=== PATIENT | male | born 1940 | race Caucasian/White ===

== ENCOUNTER → 2016-10-24 | Outpatient (CLI) | payer MEDICARE ==
[~2016-10-24] MED LIST: ACYC400T4 PO; DEXA4TAB PO; HYDR-3240 PO; LENA25CA; METR1KIT; OMNIPAQUE 350 MG/ML, 100ML BOTTLE ONE; OXYC10TA32 PO; PROC5TAB PO; SULF1TAB3 PO; TAMS-11 PO
== END | disposition home or self-care (01) ==
LOC: CFH 10:18
PROVIDERS: ATTEND Internal Medicine Hematology & Oncology
DX: C90.00 Multiple myeloma not having achieved remission (principal)
CPT/HCPCS: 70491; 82565; Q9967

== ENCOUNTER 2017-07-10 09:02 | Emergency (ER) | payer MEDICARE ==
[~2017-07-10] VITALS: Ht 175.3 cm; Wt 73.0 kg
[~2017-07-10 09:02] MED LIST changes: -OMNIPAQUE 350 MG/ML, 100ML BOTTLE ONE; -OXYC10TA32 PO; +OXYC10TA47 PO; +SULF-169 PO; -SULF1TAB3 PO
[2017-07-10] MEDS ORDERED: ENOX80SY4 SQ (09:15)
[2017-07-10] MEDS ORDERED: TERI2.4P INJ (09:27)
[2017-07-10] MEDS ORDERED: DOCU-131 PO (09:34)
[2017-07-10] MEDS ORDERED: FAMO20TA37 PO (09:34)
[2017-07-10] MEDS ORDERED: CALC-126 PO (09:34)
[2017-07-10] MEDS ORDERED: LENA15CA PO (09:34)
[2017-07-10] MEDS ORDERED: FINA5TAB4 PO (09:34)
[2017-07-10 10:24] VITALS: BP 96/66
== END 2017-07-10 10:27 | disposition home or self-care (01) ==
LOC: ED 10:10
DX: M79.672 Pain in left foot (principal); C90.00 Multiple myeloma not having achieved remission
CPT/HCPCS: 93005; 99283

== ENCOUNTER → 2017-08-29 | Outpatient (CLI) | payer MEDICARE ==
[~2017-08-29] MED LIST changes: +CALC-126 PO; +DOCU-131 PO; +ENOX80SY4 SQ; +FAMO20TA37 PO; +FINA5TAB4 PO; +LENA15CA PO; +TERI2.4P INJ
[2017-08-29 12:47] LABS: BASOPHILS # (AUTO) 0.05 x10^3/uL (0-0.1); BASOPHILS % (AUTO) 1 % (0-1); EOSINOPHILS # (AUTO) 0.08 x10^3/uL (0-0.4); EOSINOPHILS % (AUTO) 2 % (1-7); LYMPHOCYTES # (AUTO) 0.77 x10^3/uL (1-3.4); LYMPHOCYTES % (AUTO) 19 % (22-44); MD NO; MEAN CORPUSCULAR HEMOGLOBIN 32.2 pg (27.5-34.5); MEAN CORPUSCULAR HGB CONC 34.1 g/dL (33.2-36.2); MEAN CORPUSCULAR VOLUME 94.5 fL (81-97); MEAN PLATELET VOLUME 7.6 fL (7.4-10.4); MONOCYTES # (AUTO) 0.66 x10^3/uL (0.2-0.8); MONOCYTES % (AUTO) 17 % (2-9); NEUTROPHILS # (AUTO) 2.42 x10^3/uL (1.8-6.8); NEUTROPHILS % (AUTO) 61 % (42-75); PLATELET COUNT 165 x10^3/uL (130-400); RED BLOOD COUNT 4.47 x10^6/uL (4.38-5.82); RED CELL DISTRIBUTION WIDTH 14.1 % (9.4-14.8)
[2017-08-29 13:25] LABS: FOLATE LEVEL 18.7 ng/mL (3.1-17.5)
== END | disposition home or self-care (01) ==
LOC: LAB 12:36
PROVIDERS: ATTEND Internal Medicine Hematology & Oncology
DX: C90.00 Multiple myeloma not having achieved remission (principal); C79.51 Secondary malignant neoplasm of bone; M81.0 Age-related osteoporosis without current pathological fracture; Z92.21 Personal history of antineoplastic chemotherapy
CPT/HCPCS: 36415; 82607; 82746; 85025

== ENCOUNTER → 2017-09-25 | Outpatient (CLI) | payer MEDICARE | END | disposition home or self-care (01) | LOC: LAB 11:45 | PROVIDERS: ATTEND Urology | DX: N40.1 Benign prostatic hyperplasia with lower urinary tract symptoms (principal) | CPT/HCPCS: 36415; 84153 ==

== ENCOUNTER → 2017-10-15 | Outpatient (CLI) | payer MEDICARE ==
[2017-10-15 12:00] LABS: BASOPHILS # (AUTO) 0.05 x10^3/uL (0-0.1); BASOPHILS % (AUTO) 1 % (0-1); EOSINOPHILS # (AUTO) 0.11 x10^3/uL (0-0.4); EOSINOPHILS % (AUTO) 3 % (1-7); LYMPHOCYTES # (AUTO) 0.74 x10^3/uL (1-3.4); LYMPHOCYTES % (AUTO) 19 % (22-44); MD NO; MEAN CORPUSCULAR VOLUME 94.3 fL (81-97); MEAN PLATELET VOLUME 7.9 fL (7.4-10.4); MONOCYTES # (AUTO) 0.58 x10^3/uL (0.2-0.8); MONOCYTES % (AUTO) 15 % (2-9); NEUTROPHILS # (AUTO) 2.32 x10^3/uL (1.8-6.8); NEUTROPHILS % (AUTO) 61 % (42-75); PLATELET COUNT 183 x10^3/uL (130-400); RED BLOOD COUNT 4.39 x10^6/uL (4.38-5.82); RED CELL DISTRIBUTION WIDTH 14.3 % (9.4-14.8)
== END | disposition home or self-care (01) ==
LOC: LAB 11:32
PROVIDERS: ATTEND Internal Medicine Hematology & Oncology
DX: C79.51 Secondary malignant neoplasm of bone (principal); C90.00 Multiple myeloma not having achieved remission; M81.0 Age-related osteoporosis without current pathological fracture
CPT/HCPCS: 36415; 85025

== ENCOUNTER → 2018-01-27 | Outpatient (CLI) | payer MEDICARE | END | disposition home or self-care (01) | LOC: CFH 01-24 11:25 | PROVIDERS: ATTEND Internal Medicine Endocrinology, Diabetes & Metabolism | DX: M85.88 Other specified disorders of bone density and structure, other site (principal) | CPT/HCPCS: 77080 ==

== ENCOUNTER → 2018-03-03 | Outpatient (CLI) | payer MEDICARE ==
[~2018-03-03] MED LIST changes: -PROC5TAB PO; +PROC5TAB2 PO
[2018-03-03 14:25] LABS: BASOPHILS # (AUTO) 0.07 x10^3/uL (0-0.1); BASOPHILS % (AUTO) 2 % (0-1); EOSINOPHILS # (AUTO) 0.11 x10^3/uL (0-0.4); EOSINOPHILS % (AUTO) 3 % (1-7); LYMPHOCYTES # (AUTO) 0.87 x10^3/uL (1-3.4); LYMPHOCYTES % (AUTO) 20 % (22-44); MD NO; MEAN CORPUSCULAR HGB CONC 33.6 g/dL (33.2-36.2); MEAN CORPUSCULAR VOLUME 95.3 fL (81-97); MONOCYTES # (AUTO) 0.53 x10^3/uL (0.2-0.8); MONOCYTES % (AUTO) 12 % (2-9); NEUTROPHILS # (AUTO) 2.71 x10^3/uL (1.8-6.8); NEUTROPHILS % (AUTO) 63 % (42-75); PLATELET COUNT 174 x10^3/uL (130-400); RED BLOOD COUNT 4.63 x10^6/uL (4.38-5.82); RED CELL DISTRIBUTION WIDTH 14.3 % (9.4-14.8)
[2018-03-03 14:33] LABS: ALANINE AMINOTRANSFERASE 35 U/L (12-78); ALBUMIN 3.5 g/dL (3.4-5.0); ANION GAP 7 mmol/L (5-15); CALCIUM 8.8 mg/dL (8.5-10.1); CHLORIDE 106 mmol/L (98-107); CREATININE 0.97 mg/dL (0.7-1.3)
[2018-03-03 14:35] LABS: ALKALINE PHOSPHATASE 57 U/L (45-117); BILIRUBIN,TOTAL 0.7 mg/dL (0.2-1.0); TOTAL PROTEIN 6.6 g/dL (6.4-8.2)
== END | disposition home or self-care (01) ==
LOC: LAB 14:03
PROVIDERS: ATTEND Internal Medicine Hematology & Oncology
DX: C90.00 Multiple myeloma not having achieved remission (principal); C79.51 Secondary malignant neoplasm of bone; M81.0 Age-related osteoporosis without current pathological fracture; R53.0 Neoplastic (malignant) related fatigue
CPT/HCPCS: 36415; 80053; 82784; 83883; 84155; 84165; 85025; 86334

== ENCOUNTER → 2018-04-14 | Outpatient (CLI) | payer MEDICARE ==
[2018-04-14 17:19] LABS: BASOPHILS # (AUTO) 0.08 x10^3/uL (0-0.1); BASOPHILS % (AUTO) 2 % (0-1); EOSINOPHILS # (AUTO) 0.11 x10^3/uL (0-0.4); EOSINOPHILS % (AUTO) 2 % (1-7); LYMPHOCYTES # (AUTO) 0.75 x10^3/uL (1-3.4); LYMPHOCYTES % (AUTO) 15 % (22-44); MD NO; MEAN CORPUSCULAR HEMOGLOBIN 32.7 pg (27.5-34.5); MEAN CORPUSCULAR HGB CONC 33.8 g/dL (33.2-36.2); MEAN CORPUSCULAR VOLUME 96.7 fL (81-97); MEAN PLATELET VOLUME 8.6 fL (7.4-10.4); MONOCYTES # (AUTO) 0.58 x10^3/uL (0.2-0.8); MONOCYTES % (AUTO) 12 % (2-9); NEUTROPHILS # (AUTO) 3.41 x10^3/uL (1.8-6.8); NEUTROPHILS % (AUTO) 69 % (42-75); PLATELET COUNT 161 x10^3/uL (130-400); RED BLOOD COUNT 4.28 x10^6/uL (4.38-5.82); RED CELL DISTRIBUTION WIDTH 14.3 % (9.4-14.8)
[2018-04-14 17:28] LABS: ALANINE AMINOTRANSFERASE 35 U/L (12-78); ALBUMIN 3.4 g/dL (3.4-5.0); ANION GAP 8 mmol/L (5-15); CALCIUM 8.2 mg/dL (8.5-10.1); CHLORIDE 108 mmol/L (98-107); CREATININE 0.93 mg/dL (0.7-1.3)
[2018-04-14 17:31] LABS: ALKALINE PHOSPHATASE 58 U/L (45-117); BILIRUBIN,TOTAL 0.4 mg/dL (0.2-1.0); TOTAL PROTEIN 6.2 g/dL (6.4-8.2)
== END | disposition home or self-care (01) ==
LOC: LAB 16:25
PROVIDERS: ATTEND Internal Medicine Hematology & Oncology
DX: C90.00 Multiple myeloma not having achieved remission (principal); C79.51 Secondary malignant neoplasm of bone; M81.0 Age-related osteoporosis without current pathological fracture; R53.0 Neoplastic (malignant) related fatigue
CPT/HCPCS: 36415; 80053; 82784; 83883; 84155; 84165; 85025; 86334

== ENCOUNTER 2018-06-23 13:36 | Outpatient (CLI) | payer MEDICARE ==
[2018-06-23 14:00] LABS: BASOPHILS # (AUTO) 0.08 x10^3/uL (0-0.1); BASOPHILS % (AUTO) 2 % (0-1); EOSINOPHILS # (AUTO) 0.08 x10^3/uL (0-0.4); EOSINOPHILS % (AUTO) 2 % (1-7); LYMPHOCYTES # (AUTO) 0.78 x10^3/uL (1-3.4); LYMPHOCYTES % (AUTO) 15 % (22-44); MD NO; MEAN CORPUSCULAR HEMOGLOBIN 32.8 pg (27.5-34.5); MEAN CORPUSCULAR VOLUME 96.5 fL (81-97); MEAN PLATELET VOLUME 7.9 fL (7.4-10.4); MONOCYTES # (AUTO) 0.56 x10^3/uL (0.2-0.8); MONOCYTES % (AUTO) 10 % (2-9); NEUTROPHILS # (AUTO) 3.83 x10^3/uL (1.8-6.8); NEUTROPHILS % (AUTO) 72 % (42-75); PLATELET COUNT 187 x10^3/uL (130-400); RED BLOOD COUNT 4.57 x10^6/uL (4.38-5.82); RED CELL DISTRIBUTION WIDTH 13.6 % (9.4-14.8)
[2018-06-23 14:11] LABS: ALBUMIN 3.6 g/dL (3.4-5.0); ANION GAP 5 mmol/L (5-15); CALCIUM 9.1 mg/dL (8.5-10.1); CHLORIDE 105 mmol/L (98-107)
[2018-06-23 14:15] LABS: ALANINE AMINOTRANSFERASE 33 U/L (12-78); ALKALINE PHOSPHATASE 75 U/L (45-117); BILIRUBIN,TOTAL 0.7 mg/dL (0.2-1.0); CREATININE 0.88 mg/dL (0.7-1.3); TOTAL PROTEIN 6.6 g/dL (6.4-8.2)
== END 2018-06-23 23:59 | disposition home or self-care (01) ==
LOC: LAB 13:36
PROVIDERS: ATTEND Internal Medicine Hematology & Oncology
DX: M81.0 Age-related osteoporosis without current pathological fracture (principal); Z85.830 Personal history of malignant neoplasm of bone; Z79.899 Other long term (current) drug therapy
CPT/HCPCS: 36415; 80053; 82784; 83883; 84155; 84165; 85025; 86334

== ENCOUNTER → 2018-07-23 | Outpatient (CLI) | payer MEDICARE ==
[2018-07-23 14:32] LABS: BASOPHILS # (AUTO) 0.09 x10^3/uL (0-0.1); BASOPHILS % (AUTO) 2 % (0-1); EOSINOPHILS # (AUTO) 0.08 x10^3/uL (0-0.4); EOSINOPHILS % (AUTO) 2 % (1-7); LYMPHOCYTES # (AUTO) 0.68 x10^3/uL (1-3.4); LYMPHOCYTES % (AUTO) 13 % (22-44); MD NO; MEAN CORPUSCULAR HEMOGLOBIN 32.6 pg (27.5-34.5); MEAN CORPUSCULAR HGB CONC 33.9 g/dL (33.2-36.2); MEAN CORPUSCULAR VOLUME 96.3 fL (81-97); MEAN PLATELET VOLUME 7.7 fL (7.4-10.4); MONOCYTES # (AUTO) 0.53 x10^3/uL (0.2-0.8); MONOCYTES % (AUTO) 10 % (2-9); NEUTROPHILS # (AUTO) 3.96 x10^3/uL (1.8-6.8); NEUTROPHILS % (AUTO) 74 % (42-75); PLATELET COUNT 233 x10^3/uL (130-400); RED BLOOD COUNT 4.49 x10^6/uL (4.38-5.82); RED CELL DISTRIBUTION WIDTH 13.9 % (9.4-14.8)
[2018-07-23 14:44] LABS: ALANINE AMINOTRANSFERASE 26 U/L (12-78); ALBUMIN 3.5 g/dL (3.4-5.0); ANION GAP 5 mmol/L (5-15); CALCIUM 8.5 mg/dL (8.5-10.1); CHLORIDE 106 mmol/L (98-107); CREATININE 0.87 mg/dL (0.7-1.3)
[2018-07-23 14:46] LABS: ALKALINE PHOSPHATASE 72 U/L (45-117); BILIRUBIN,TOTAL 0.5 mg/dL (0.2-1.0); TOTAL PROTEIN 6.8 g/dL (6.4-8.2)
== END | disposition home or self-care (01) ==
LOC: LAB 14:10
PROVIDERS: ATTEND Internal Medicine Hematology & Oncology
DX: M81.0 Age-related osteoporosis without current pathological fracture (principal); Z85.830 Personal history of malignant neoplasm of bone
CPT/HCPCS: 36415; 80053; 82784; 83883; 84155; 84165; 85025; 86334

== ENCOUNTER → 2018-10-15 | Outpatient (CLI) | payer MEDICARE ==
[2018-10-15 13:32] LABS: BASOPHILS # (AUTO) 0.07 x10^3/uL (0-0.1); BASOPHILS % (AUTO) 2 % (0-1); EOSINOPHILS # (AUTO) 0.13 x10^3/uL (0-0.4); EOSINOPHILS % (AUTO) 3 % (1-7); LYMPHOCYTES # (AUTO) 0.76 x10^3/uL (1-3.4); LYMPHOCYTES % (AUTO) 16 % (22-44); MD NO; MEAN CORPUSCULAR HEMOGLOBIN 32.6 pg (27.5-34.5); MEAN CORPUSCULAR HGB CONC 33.8 g/dL (33.2-36.2); MEAN CORPUSCULAR VOLUME 96.3 fL (81-97); MEAN PLATELET VOLUME 7.9 fL (7.4-10.4); MONOCYTES # (AUTO) 0.56 x10^3/uL (0.2-0.8); MONOCYTES % (AUTO) 12 % (2-9); NEUTROPHILS % (AUTO) 68 % (42-75); PLATELET COUNT 184 x10^3/uL (130-400); RED BLOOD COUNT 4.45 x10^6/uL (4.38-5.82); RED CELL DISTRIBUTION WIDTH 14.9 % (9.4-14.8)
[2018-10-15 13:44] LABS: ALANINE AMINOTRANSFERASE 27 U/L (12-78); ALBUMIN 3.6 g/dL (3.4-5.0); ANION GAP 5 mmol/L (5-15); CALCIUM 8.8 mg/dL (8.5-10.1); CHLORIDE 108 mmol/L (98-107); CREATININE 1.17 mg/dL (0.7-1.3)
[2018-10-15 13:48] LABS: ALKALINE PHOSPHATASE 61 U/L (45-117); BILIRUBIN,TOTAL 0.5 mg/dL (0.2-1.0); TOTAL PROTEIN 6.6 g/dL (6.4-8.2)
== END | disposition home or self-care (01) ==
LOC: LAB 13:02
PROVIDERS: ATTEND Internal Medicine Hematology & Oncology
DX: Z51.11 Encounter for antineoplastic chemotherapy (principal); C90.00 Multiple myeloma not having achieved remission; C79.51 Secondary malignant neoplasm of bone; M81.0 Age-related osteoporosis without current pathological fracture; R53.0 Neoplastic (malignant) related fatigue; R97.20 Elevated prostate specific antigen [PSA]
CPT/HCPCS: 36415; 80053; 82784; 83883; 84153; 84155; 84165; 85025; 86334

== ENCOUNTER 2019-01-15 14:28 | Outpatient (CLI) | payer MEDICARE | END 2019-01-15 23:59 | disposition home or self-care (01) | LOC: LAB 14:28 | PROVIDERS: ATTEND Internal Medicine Hematology & Oncology | DX: Z51.11 Encounter for antineoplastic chemotherapy (principal); C90.00 Multiple myeloma not having achieved remission; C79.51 Secondary malignant neoplasm of bone; M81.0 Age-related osteoporosis without current pathological fracture; R53.0 Neoplastic (malignant) related fatigue | CPT/HCPCS: 36415; 85025 ==

== ENCOUNTER 2019-04-09 08:36 | Outpatient (CLI) | payer MEDICARE | END 2019-04-09 23:59 | disposition home or self-care (01) | LOC: ROC 08:36 | PROVIDERS: ATTEND Radiology Radiation Oncology | DX: C90.00 Multiple myeloma not having achieved remission (principal) | CPT/HCPCS: G0463 ==

== ENCOUNTER 2019-04-22 06:16 | Day surgery (SDC) | payer MEDICARE ==
[~2019-04-22] VITALS: Ht 170.2 cm; Wt 67.3 kg
[2019-04-22 06:48] VITALS: BP 136/60
[2019-04-22] MEDS ORDERED: SODIUM CHLORIDE 0.9% 1,000 ML IV SCH (06:50)
[2019-04-22] MEDS ORDERED: CEFAZOLIN PMX 1GM/50ML 50 ML IV ONE (07:00)
[2019-04-22] MEDS ORDERED: FENTANYL PF 100 MCG/2ML ONE (07:25)
[2019-04-22] MEDS ORDERED: NALOXONE 1 MG/ML, 2ML ONE (07:26)
[2019-04-22] MEDS ORDERED: MIDAZOLAM 1 MG/ML, 5ML ONE (07:26)
[2019-04-22] MEDS ORDERED: FLUMAZENIL 0.1 MG/1 ML, 5ML ONE (07:26)
[2019-04-22] MEDS ORDERED: LIDOCAINE 1%, 20ML ONE (08:05)
== END 2019-04-22 10:55 | disposition home or self-care (01) ==
LOC: OUT 06:16
PROVIDERS: ATTEND Internal Medicine Hematology & Oncology
DX: C90.00 Multiple myeloma not having achieved remission (principal)
CPT/HCPCS: 36561; 76937; 77001; 99156; 99157; C1788; J0690; J1642; J2250; J3010; J7030; J2310

== ENCOUNTER → 2019-05-08 | Outpatient (CLI) | payer MEDICARE ==
[2019-05-08 13:20] LABS: ALANINE AMINOTRANSFERASE 35 U/L (12-78); ALBUMIN 3.2 g/dL (3.4-5.0); ANION GAP 5 mmol/L (5-15); CALCIUM 8.9 mg/dL (8.5-10.1); CHLORIDE 106 mmol/L (98-107); CREATININE 0.91 mg/dL (0.7-1.3)
[2019-05-08 13:22] LABS: ALKALINE PHOSPHATASE 56 U/L (45-117); BILIRUBIN,TOTAL 0.7 mg/dL (0.2-1.0); TOTAL PROTEIN 6.3 g/dL (6.4-8.2)
== END | disposition home or self-care (01) ==
LOC: LAB 12:51
PROVIDERS: ATTEND Internal Medicine Hematology & Oncology
DX: Z51.12 Encounter for antineoplastic immunotherapy (principal); M81.0 Age-related osteoporosis without current pathological fracture; C90.00 Multiple myeloma not having achieved remission; C79.51 Secondary malignant neoplasm of bone; Z79.899 Other long term (current) drug therapy
CPT/HCPCS: 36415; 80053; 82784; 83883; 84155; 84165; 86334

== ENCOUNTER → 2019-05-13 | Outpatient (CLI) | payer MEDICARE | END | disposition home or self-care (01) | LOC: LAB 14:09 | PROVIDERS: ATTEND Internal Medicine Hematology & Oncology | DX: Z51.12 Encounter for antineoplastic immunotherapy (principal); R53.0 Neoplastic (malignant) related fatigue; M81.0 Age-related osteoporosis without current pathological fracture; Z79.899 Other long term (current) drug therapy | CPT/HCPCS: 83883 ==

== ENCOUNTER → 2019-05-15 | Outpatient (CLI) | payer MEDICARE | END | disposition home or self-care (01) | LOC: EDSTATUS 05-04 19:00 → ROC 07:36 | PROVIDERS: ATTEND Radiology Radiation Oncology | DX: C90.00 Multiple myeloma not having achieved remission (principal); Z79.899 Other long term (current) drug therapy | CPT/HCPCS: G0463 ==

== ENCOUNTER → 2019-07-20 | Outpatient (CLI) | payer MEDICARE ==
[~2019-07-20] MED LIST changes: +CEFD300C37 PO; +DOXY100T PO
== END | disposition home or self-care (01) ==
LOC: EDSTATUS 04-28 19:00 → ROC 08:07
PROVIDERS: ATTEND Radiology Radiation Oncology
DX: C90.00 Multiple myeloma not having achieved remission (principal)
CPT/HCPCS: G0463

== ENCOUNTER → 2019-07-24 | Outpatient (CLI) | payer MEDICARE | END | disposition home or self-care (01) | LOC: LAB 16:16 | PROVIDERS: ATTEND Internal Medicine Hematology & Oncology | DX: Z51.11 Encounter for antineoplastic chemotherapy (principal); Z51.12 Encounter for antineoplastic immunotherapy; C90.00 Multiple myeloma not having achieved remission; C79.51 Secondary malignant neoplasm of bone; M81.0 Age-related osteoporosis without current pathological fracture; R53.0 Neoplastic (malignant) related fatigue; Z79.899 Other long term (current) drug therapy | CPT/HCPCS: 83883 ==

== ENCOUNTER 2021-02-02 20:10 | Inpatient (IN) | payer MEDICARE ==
[~2021-02-02] VITALS: Ht 170.2 cm; Wt 66.7 kg
[~2021-02-02 20:10] MED LIST changes: +DAPT500V6 IV; +HYDR-2214 PO; -HYDR-3240 PO; +MONT10TA17 PO; +OXYC18CA PO; +OXYC5CAP2 PO; +POMA4CAP PO
--- NOTE | 2021-02-02 20:38 | NUR ---
PT BIB [facility] FOR NEW ONSET SOB, FATIGUE, AND FEVER. PT HAS MULTIPLE MYELOMA AND RECEIVED CHEMO YESTERDAY. AT BEDSIDE. AAOX4. ROOM AIR SAT 95%. TARA.
[2021-02-02] MEDS ORDERED: ACETAMINOPHEN 500 MG TABLET PO ONE (21:00)
--- NOTE | 2021-02-02 21:02 | NUR ---
LAB AT BEDSIDE.
--- NOTE | 2021-02-02 21:12 | NUR ---
RADIOLOGY AT BEDSIDE.
[2021-02-02 21:27] LABS: BASOPHILS % (AUTO) 1 % (0-1); EOSINOPHILS % (AUTO) 0 % (1-7); LYMPHOCYTES % (AUTO) 3 % (22-44); MEAN CORPUSCULAR HEMOGLOBIN 33.6 pg (27.5-34.5); MEAN CORPUSCULAR HGB CONC 33.9 g/dL (33.2-36.2); MONOCYTES % (AUTO) 9 % (2-9); NEUTROPHILS % (AUTO) 86 % (42-75); PLATELET COUNT 112 x10^3/uL (130-400); RED BLOOD COUNT 3.79 x10^6/uL (4.38-5.82); RED CELL DISTRIBUTION WIDTH 14.9 % (9.4-14.8)
[2021-02-02 21:29] LABS: ALBUMIN 3.1 g/dL (3.4-5.0); ANION GAP 7 mmol/L (5-15); CALCIUM 8.3 mg/dL (8.5-10.1); CHLORIDE 106 mmol/L (98-107); CREATININE 0.55 mg/dL (0.7-1.3)
[2021-02-02 22:07] LABS: MICROSCOPIC AUTO
[2021-02-02] MEDS ORDERED: OXYcodone IR 5MG TABLET PO PRN (23:00)
[2021-02-02] MEDS ORDERED: AZITHROMYCIN 500 MG in SODIUM CHLORIDE 0.9% 250 ML IV ONE (23:00)
[2021-02-02] MEDS ORDERED: CEFTRIAXONE 1,000 MG in DEXTROSE 5% 50 ML IVPB ONE (23:00)
--- NOTE | 2021-02-02 23:11 | NUR ---
PT SWABBED FOR COVID AND WALKED TO LAB
--- NOTE | 2021-02-02 23:31 | NUR ---
PT TO ROOM 342. REPORT GIVEN TO GETACHEW BEDOLLA.
[2021-02-03 00:26] VITALS: BP 125/70
[2021-02-03] MEDS ORDERED: ACETAMINOPHEN 325 MG TABLET PO PRN (04:00)
[2021-02-03] MEDS ORDERED: ONDANSETRON 2MG/ML, 2ML IVPush PRN (04:00)
[2021-02-03] MEDS ORDERED: GUAIFENESIN/DM 200-20MG, 10ML UDC PO PRN (04:00)
[2021-02-03] MEDS ORDERED: hydrALAzine 20 MG/ML, 1ML IVPush PRN (04:00)
[2021-02-03] MEDS: ENOXAPARIN 60 MG/0.6 ML SQ SCH ×2 (04:29→16:25)
[2021-02-03] MEDS: LACTATED RINGERS 1,000 ML IV SCH ×2 (04:30→14:00)
[2021-02-03 06:43] LABS: BASOPHILS % (AUTO) 1 % (0-1); EOSINOPHILS % (AUTO) 0 % (1-7); LYMPHOCYTES % (AUTO) 2 % (22-44); MEAN CORPUSCULAR HEMOGLOBIN 33.1 pg (27.5-34.5); MEAN CORPUSCULAR HGB CONC 33.7 g/dL (33.2-36.2); MEAN PLATELET VOLUME 7.7 fL (7.4-10.4); MONOCYTES % (AUTO) 16 % (2-9); NEUTROPHILS % (AUTO) 81 % (42-75); PLATELET COUNT 112 x10^3/uL (130-400); RED BLOOD COUNT 3.87 x10^6/uL (4.38-5.82)
[2021-02-03] MEDS ORDERED: DAPTOMYCIN MC SCH (07:30)
[2021-02-03 08:23] VITALS: BP 133/85
[2021-02-03] MEDS ORDERED: DAPTOMYCIN 500 MG IV SCH (09:00)
[2021-02-03] MEDS: DEXAMETHASONE 4 MG TABLET PO SCH (09:32)
[2021-02-03] MEDS: FINASTERIDE 5 MG TABLET PO SCH (09:32)
[2021-02-03] MEDS: MONTELUKAST 10 MG TABLET PO SCH (09:32)
[2021-02-03] MEDS: TAMSULOSIN 0.4 MG CAP.ER.24H PO SCH ×2 (09:32→20:56)
[2021-02-03] MEDS: CEFTAROLINE 600 MG in SODIUM CHLORIDE 0.9% 100 ML IV SCH (12:52)
[2021-02-03 13:20] VITALS: BP 130/80
[2021-02-03 19:00] VITALS: BP 114/65
[2021-02-03] MEDS ORDERED: OXYcodone IR 5MG TABLET PO PRN (22:30)
[2021-02-04 00:21] VITALS: BP_SYST 135; BP_DIAS 44; BP_DIAS 72
[2021-02-04] MEDS: CEFTAROLINE 600 MG in SODIUM CHLORIDE 0.9% 100 ML IV SCH ×2 (00:22→12:04)
[2021-02-04] MEDS: LACTATED RINGERS 1,000 ML IV SCH (02:20)
[2021-02-04] MEDS: ENOXAPARIN 60 MG/0.6 ML SQ SCH ×2 (03:28→16:22)
[2021-02-04 06:11] LABS: CHLORIDE 107 mmol/L (98-107)
[2021-02-04 06:20] LABS: ALANINE AMINOTRANSFERASE 22 U/L (12-78); ALBUMIN 2.4 g/dL (3.4-5.0); ALKALINE PHOSPHATASE 47 U/L (45-117); ANION GAP 7 mmol/L (5-15); BILIRUBIN,TOTAL 0.9 mg/dL (0.2-1.0); CALCIUM 8.2 mg/dL (8.5-10.1); CREATININE 0.49 mg/dL (0.7-1.3); TOTAL PROTEIN 5.6 g/dL (6.4-8.2)
[2021-02-04 07:06] VITALS: BP 141/85
[2021-02-04] MEDS: DEXAMETHASONE 4 MG TABLET PO SCH (08:05)
[2021-02-04] MEDS: FINASTERIDE 5 MG TABLET PO SCH (08:05)
[2021-02-04] MEDS: TAMSULOSIN 0.4 MG CAP.ER.24H PO SCH ×2 (08:05→21:15)
[2021-02-04] MEDS: MONTELUKAST 10 MG TABLET PO SCH (08:06)
[2021-02-04] MEDS ORDERED: POTASSIUM PHOS 4.4 MEQ/ML IV SCH (09:00)
[2021-02-04] MEDS ORDERED: POTASSIUM PHOSPHATE 44 MEQ in SODIUM CHLORIDE 0.9% 500 ML IV ONE (09:30)
[2021-02-04] MEDS: SODIUM CHLORIDE 0.9% 1,000 ML IV SCH (11:44)
[2021-02-04 12:17] VITALS: BP 125/71
[2021-02-04] MEDS: HYDROcodone/APAP 10/325 MG TABLET PO PRN ×2 (13:36→21:16)
[2021-02-04] MEDS: CYCLOBENZAPRINE 10 MG TABLET PO PRN ×2 (14:44→21:15)
[2021-02-04 21:17] VITALS: BP 125/77
[2021-02-05 00:02] VITALS: BP 136/76
[2021-02-05] MEDS: CEFTAROLINE 600 MG in SODIUM CHLORIDE 0.9% 100 ML IV SCH (00:02)
[2021-02-05] MEDS: CYCLOBENZAPRINE 10 MG TABLET PO PRN ×3 (05:08→22:21)
[2021-02-05] MEDS: HYDROcodone/APAP 10/325 MG TABLET PO PRN ×3 (05:08→20:00)
[2021-02-05] MEDS: ENOXAPARIN 60 MG/0.6 ML SQ SCH ×2 (05:08→16:00)
[2021-02-05 06:28] VITALS: BP 119/63
[2021-02-05] MEDS: DEXAMETHASONE 4 MG TABLET PO SCH (08:23)
[2021-02-05] MEDS: TAMSULOSIN 0.4 MG CAP.ER.24H PO SCH ×2 (08:23→20:00)
[2021-02-05] MEDS: MONTELUKAST 10 MG TABLET PO SCH (08:24)
[2021-02-05] MEDS: FINASTERIDE 5 MG TABLET PO SCH (08:24)
[2021-02-05 10:11] LABS: BASOPHILS % (AUTO) 1 % (0-1); EOSINOPHILS % (AUTO) 0 % (1-7); LYMPHOCYTES % (AUTO) 5 % (22-44); MEAN CORPUSCULAR HEMOGLOBIN 33.4 pg (27.5-34.5); MEAN CORPUSCULAR HGB CONC 34.2 g/dL (33.2-36.2); MONOCYTES % (AUTO) 6 % (2-9); NEUTROPHILS % (AUTO) 88 % (42-75); PLATELET COUNT 115 x10^3/uL (130-400); RED BLOOD COUNT 3.68 x10^6/uL (4.38-5.82); RED CELL DISTRIBUTION WIDTH 14.9 % (9.4-14.8)
[2021-02-05 10:21] LABS: ANION GAP 5 mmol/L (5-15); CALCIUM 7.9 mg/dL (8.5-10.1); CHLORIDE 112 mmol/L (98-107)
[2021-02-05] MEDS: SODIUM CHLORIDE 0.9% 1,000 ML IV SCH (10:25)
[2021-02-05] MEDS ORDERED: GADOTERATE 7.5 MMOL/15ML SYR ONE (14:00)
[2021-02-05 15:03] VITALS: BP 131/60
[2021-02-05] MEDS: CEFAZOLIN 2,000 MG in SODIUM CHLORIDE 0.9% 50 ML IV SCH ×2 (15:36→23:36)
[2021-02-05] MEDS: POTASSIUM CHLORIDE 20 MEQ TAB.ER.PRT PO SCH ×2 (16:01→20:00)
[2021-02-05 18:40] VITALS: BP 125/67
[2021-02-06 01:17] VITALS: BP 137/75
[2021-02-06] MEDS: SODIUM CHLORIDE 0.9% 1,000 ML IV SCH (04:15)
[2021-02-06] MEDS: ENOXAPARIN 60 MG/0.6 ML SQ SCH ×2 (04:15→15:59)
[2021-02-06 05:28] LABS: BASOPHILS % (AUTO) 0 % (0-1); EOSINOPHILS % (AUTO) 0 % (1-7); LYMPHOCYTES % (AUTO) 12 % (22-44); MEAN CORPUSCULAR HEMOGLOBIN 33.2 pg (27.5-34.5); MEAN CORPUSCULAR HGB CONC 33.9 g/dL (33.2-36.2); MEAN PLATELET VOLUME 8.1 fL (7.4-10.4); MONOCYTES % (AUTO) 14 % (2-9); NEUTROPHILS % (AUTO) 73 % (42-75); PLATELET COUNT 123 x10^3/uL (130-400); RED BLOOD COUNT 3.54 x10^6/uL (4.38-5.82)
[2021-02-06 05:35] LABS: ALBUMIN 1.9 g/dL (3.4-5.0); ANION GAP 5 mmol/L (5-15); CALCIUM 8.1 mg/dL (8.5-10.1); CHLORIDE 111 mmol/L (98-107)
[2021-02-06 05:39] LABS: ALANINE AMINOTRANSFERASE 116 U/L (12-78); ALKALINE PHOSPHATASE 40 U/L (45-117); BILIRUBIN,TOTAL 0.3 mg/dL (0.2-1.0); CREATININE 0.48 mg/dL (0.7-1.3); TOTAL PROTEIN 4.8 g/dL (6.4-8.2)
[2021-02-06 06:16] VITALS: BP 149/67
[2021-02-06] MEDS: HYDROcodone/APAP 10/325 MG TABLET PO PRN ×2 (07:22→15:40)
[2021-02-06] MEDS: MONTELUKAST 10 MG TABLET PO SCH (07:22)
[2021-02-06] MEDS: CEFAZOLIN 2,000 MG in SODIUM CHLORIDE 0.9% 50 ML IV SCH ×3 (07:22→23:44)
[2021-02-06] MEDS: TAMSULOSIN 0.4 MG CAP.ER.24H PO SCH ×2 (07:23→20:19)
[2021-02-06] MEDS: DEXAMETHASONE 4 MG TABLET PO SCH (07:23)
[2021-02-06] MEDS: FINASTERIDE 5 MG TABLET PO SCH (07:24)
[2021-02-06] MEDS ORDERED: THIAMINE 100MG TABLET PO SCH (09:00)
[2021-02-06] MEDS ORDERED: FOLIC ACID 1 MG TABLET PO SCH (09:00)
[2021-02-06 12:41] VITALS: BP 121/81
[2021-02-06] MEDS: CYCLOBENZAPRINE 10 MG TABLET PO PRN (17:01)
[2021-02-06 18:35] VITALS: BP 129/67
[2021-02-06 23:48] VITALS: BP 127/70
[2021-02-07] MEDS: ENOXAPARIN 60 MG/0.6 ML SQ SCH ×2 (04:04→15:13)
[2021-02-07] MEDS: HYDROcodone/APAP 10/325 MG TABLET PO PRN ×4 (04:04→20:18)
[2021-02-07 05:30] LABS: BASOPHILS % (AUTO) 0 % (0-1); EOSINOPHILS % (AUTO) 1 % (1-7); LYMPHOCYTES % (AUTO) 17 % (22-44); MEAN CORPUSCULAR HEMOGLOBIN 33.3 pg (27.5-34.5); MEAN CORPUSCULAR HGB CONC 34.1 g/dL (33.2-36.2); MEAN PLATELET VOLUME 8.1 fL (7.4-10.4); MONOCYTES % (AUTO) 21 % (2-9); NEUTROPHILS % (AUTO) 61 % (42-75); PLATELET COUNT 173 x10^3/uL (130-400); RED BLOOD COUNT 3.78 x10^6/uL (4.38-5.82); RED CELL DISTRIBUTION WIDTH 14.6 % (9.4-14.8)
[2021-02-07 05:45] LABS: ANION GAP 6 mmol/L (5-15); CALCIUM 8.6 mg/dL (8.5-10.1); CHLORIDE 106 mmol/L (98-107)
[2021-02-07] MEDS: CYCLOBENZAPRINE 10 MG TABLET PO PRN (06:10)
[2021-02-07 06:13] LABS: CREATININE 0.53 mg/dL (0.7-1.3)
[2021-02-07 06:16] VITALS: BP 131/75
[2021-02-07] MEDS: CEFAZOLIN 2,000 MG in SODIUM CHLORIDE 0.9% 50 ML IV SCH (08:22)
[2021-02-07] MEDS: FINASTERIDE 5 MG TABLET PO SCH (08:22)
[2021-02-07] MEDS: DEXAMETHASONE 4 MG TABLET PO SCH (08:23)
[2021-02-07] MEDS: TAMSULOSIN 0.4 MG CAP.ER.24H PO SCH ×2 (08:23→20:17)
[2021-02-07] MEDS: MONTELUKAST 10 MG TABLET PO SCH (08:23)
[2021-02-07 12:09] VITALS: BP 108/60
[2021-02-07] MEDS ORDERED: POTASSIUM CHLORIDE 20 MEQ TAB.ER.PRT PO ONE (15:00)
[2021-02-07] MEDS: CEFAZOLIN PMX 2GM/50ML 50 ML IVPB SCH (15:14)
[2021-02-07] MEDS ORDERED: CEFAZOLIN 2,000 MG in DEXTROSE 5% 50 ML IV SCH (15:30)
[2021-02-07 18:42] VITALS: BP 121/78
[2021-02-08 00:06] VITALS: BP 146/67
[2021-02-08] MEDS: CEFAZOLIN PMX 2GM/50ML 50 ML IVPB SCH ×4 (00:08→23:47)
[2021-02-08] MEDS: HYDROcodone/APAP 10/325 MG TABLET PO PRN ×4 (03:45→20:49)
[2021-02-08] MEDS: ENOXAPARIN 60 MG/0.6 ML SQ SCH ×2 (03:45→15:45)
[2021-02-08 05:21] LABS: BASOPHILS % (AUTO) 1 % (0-1); EOSINOPHILS % (AUTO) 2 % (1-7); LYMPHOCYTES % (AUTO) 24 % (22-44); MEAN CORPUSCULAR HEMOGLOBIN 33.6 pg (27.5-34.5); MEAN CORPUSCULAR HGB CONC 34.5 g/dL (33.2-36.2); MONOCYTES % (AUTO) 20 % (2-9); NEUTROPHILS % (AUTO) 53 % (42-75); PLATELET COUNT 204 x10^3/uL (130-400); RED BLOOD COUNT 3.71 x10^6/uL (4.38-5.82); RED CELL DISTRIBUTION WIDTH 14.6 % (9.4-14.8)
[2021-02-08 05:30] LABS: ANION GAP 4 mmol/L (5-15); CALCIUM 8.6 mg/dL (8.5-10.1); CHLORIDE 106 mmol/L (98-107); CREATININE 0.52 mg/dL (0.7-1.3)
[2021-02-08 06:23] VITALS: BP 118/64
[2021-02-08] MEDS: FINASTERIDE 5 MG TABLET PO SCH (08:06)
[2021-02-08] MEDS: DEXAMETHASONE 4 MG TABLET PO SCH (08:07)
[2021-02-08] MEDS: MONTELUKAST 10 MG TABLET PO SCH (08:08)
[2021-02-08] MEDS: TAMSULOSIN 0.4 MG CAP.ER.24H PO SCH ×2 (08:08→20:49)
[2021-02-08 12:25] VITALS: BP 109/60
[2021-02-08] MEDS ORDERED: MELATONIN 5 MG TABLET PO PRN (19:30)
[2021-02-08 20:51] VITALS: BP 121/60
[2021-02-09 00:05] VITALS: BP 126/70
[2021-02-09] MEDS: CYCLOBENZAPRINE 10 MG TABLET PO PRN ×2 (02:47→19:37)
[2021-02-09] MEDS: HYDROcodone/APAP 10/325 MG TABLET PO PRN ×4 (02:47→23:12)
[2021-02-09 06:06] LABS: ANION GAP 7 mmol/L (5-15); BASOPHILS % (AUTO) 1 % (0-1); CALCIUM 8.6 mg/dL (8.5-10.1); CHLORIDE 107 mmol/L (98-107); CREATININE 0.65 mg/dL (0.7-1.3); EOSINOPHILS % (AUTO) 2 % (1-7); LYMPHOCYTES % (AUTO) 30 % (22-44); MEAN CORPUSCULAR HEMOGLOBIN 33.2 pg (27.5-34.5); MEAN CORPUSCULAR HGB CONC 34.2 g/dL (33.2-36.2); MEAN PLATELET VOLUME 8.1 fL (7.4-10.4); MONOCYTES % (AUTO) 18 % (2-9); NEUTROPHILS % (AUTO) 49 % (42-75); PLATELET COUNT 239 x10^3/uL (130-400); RED BLOOD COUNT 3.78 x10^6/uL (4.38-5.82); RED CELL DISTRIBUTION WIDTH 14.2 % (9.4-14.8)
[2021-02-09] MEDS: CEFAZOLIN PMX 2GM/50ML 50 ML IVPB SCH ×3 (07:37→23:06)
[2021-02-09] MEDS: ENOXAPARIN 60 MG/0.6 ML SQ SCH ×2 (07:39→19:37)
[2021-02-09] MEDS: FINASTERIDE 5 MG TABLET PO SCH (07:39)
[2021-02-09] MEDS: MONTELUKAST 10 MG TABLET PO SCH (07:39)
[2021-02-09] MEDS: DEXAMETHASONE 4 MG TABLET PO SCH (07:40)
[2021-02-09] MEDS: TAMSULOSIN 0.4 MG CAP.ER.24H PO SCH ×2 (07:41→19:37)
[2021-02-09 08:54] VITALS: BP 111/73
[2021-02-09 12:10] VITALS: BP 103/64
[2021-02-09 19:29] VITALS: BP 132/78
[2021-02-10 00:38] VITALS: BP 122/65
[2021-02-10] MEDS: HYDROcodone/APAP 10/325 MG TABLET PO PRN ×3 (03:49→14:12)
[2021-02-10 05:42] LABS: BASOPHILS % (AUTO) 1 % (0-1); EOSINOPHILS % (AUTO) 2 % (1-7); LYMPHOCYTES % (AUTO) 36 % (22-44); MEAN CORPUSCULAR HEMOGLOBIN 33.5 pg (27.5-34.5); MEAN CORPUSCULAR HGB CONC 34.5 g/dL (33.2-36.2); MEAN PLATELET VOLUME 7.7 fL (7.4-10.4); MONOCYTES % (AUTO) 13 % (2-9); NEUTROPHILS % (AUTO) 48 % (42-75); PLATELET COUNT 285 x10^3/uL (130-400); RED BLOOD COUNT 3.87 x10^6/uL (4.38-5.82); RED CELL DISTRIBUTION WIDTH 14.7 % (9.4-14.8)
[2021-02-10 05:46] LABS: ANION GAP 5 mmol/L (5-15); CALCIUM 8.5 mg/dL (8.5-10.1); CHLORIDE 108 mmol/L (98-107); CREATININE 0.56 mg/dL (0.7-1.3)
[2021-02-10 06:27] VITALS: BP 100/63
[2021-02-10 06:59] VITALS: BP 112/70
[2021-02-10] MEDS: CEFAZOLIN PMX 2GM/50ML 50 ML IVPB SCH ×2 (08:22→15:30)
[2021-02-10] MEDS: TAMSULOSIN 0.4 MG CAP.ER.24H PO SCH (08:22)
[2021-02-10] MEDS: ENOXAPARIN 60 MG/0.6 ML SQ SCH (08:22)
[2021-02-10] MEDS: FINASTERIDE 5 MG TABLET PO SCH (08:23)
[2021-02-10] MEDS: MONTELUKAST 10 MG TABLET PO SCH (08:23)
[2021-02-10] MEDS: DEXAMETHASONE 4 MG TABLET PO SCH (08:23)
[2021-02-10] MEDS ORDERED: DAPT500V6 IV (11:46)
[2021-02-10] MEDS ORDERED: DEXA1TAB5 PO (11:46)
[2021-02-10] MEDS ORDERED: DAPTOMYCIN 400 MG in SODIUM CHLORIDE 0.9% 100 ML IVPB SCH (12:00)
[2021-02-10 12:03] VITALS: BP 121/83
[2021-02-10 16:01] VITALS: BP 130/60
[2021-02-11] MEDS ORDERED: DEXAMETHASONE 1 MG TABLET PO SCH (09:00)
== END 2021-02-10 16:15 | disposition home or self-care (01) | DRG 871 ==
LOC: ED 21:23 → EDIP 23:29 → 3N 02-03 00:06 → 4NW 02-03 15:07
PROVIDERS: ADMIT Internal Medicine; ATTEND Internal Medicine
PROC: 02HV33Z Insertion of Infusion Device into Superior Vena Cava, Percutaneous Approach (ICD-10-PCS; principal; 2021-02-10)
PROC: B5181ZA Fluoroscopy of Superior Vena Cava using Low Osmolar Contrast, Guidance (ICD-10-PCS; 2021-02-10)
PROC: B548ZZA Ultrasonography of Superior Vena Cava, Guidance (ICD-10-PCS; 2021-02-10)
PROC: B5161ZZ Fluoroscopy of Right Subclavian Vein using Low Osmolar Contrast (ICD-10-PCS; 2021-02-10)
DX: A41.2 Sepsis due to unspecified staphylococcus (principal); J18.9 Pneumonia, unspecified organism; J96.01 Acute respiratory failure with hypoxia; G06.1 Intraspinal abscess and granuloma; C90.00 Multiple myeloma not having achieved remission; D84.9 Immunodeficiency, unspecified; J47.0 Bronchiectasis with acute lower respiratory infection; M46.22 Osteomyelitis of vertebra, cervical region; N13.30 Unspecified hydronephrosis; R31.29 Other microscopic hematuria; N40.0 Benign prostatic hyperplasia without lower urinary tract symptoms; D53.9 Nutritional anemia, unspecified; D69.59 Other secondary thrombocytopenia; E88.09 Other disorders of plasma-protein metabolism, not elsewhere classified; Z92.21 Personal history of antineoplastic chemotherapy; M60.9 Myositis, unspecified; M48.061 Spinal stenosis, lumbar region without neurogenic claudication; M48.04 Spinal stenosis, thoracic region; M48.02 Spinal stenosis, cervical region; Z87.891 Personal history of nicotine dependence; Z86.718 Personal history of other venous thrombosis and embolism; Z86.19 Personal history of other infectious and parasitic diseases; Z86.14 Personal history of Methicillin resistant Staphylococcus aureus infection; Z78.9 Other specified health status; Z20.822 Contact with and (suspected) exposure to COVID-19
CPT/HCPCS: 36415; 36573; 71045; 71250; 72050; 72156; 72157; 72158; 80048; 80053; 81001; 82040; 82607; 83605; 83735; 84100; 84443; 85025; 87040; 87070; 87077; 87147; 87186; 87205; 93005; 93308; 96365; 96367; 99285; G0378; J0456; J0690; J0696; J0712; J0878; J1650; U0005; A9575; C1751; J7030; J7040; J7050; J7120; U0003